=== PATIENT | male | born 1955 | race Caucasian/White ===

== ENCOUNTER 2017-02-13 11:23 | Observation (INO) | payer MEDICAID, OTHER ==
[~2017-02-13] VITALS: Ht 167.6 cm; Wt 81.0 kg
[2017-02-13 07:30] VITALS: BMI 28.8
[~2017-02-13 11:23] MED LIST: ASPI-664 PO; ATOR20TA38 PO; AUG875 PO; CIPR7.5D4 BOTH EARS; CLIN-73 PO; CLOP75TA27 PO; DILT120C77 PO; FENO145T19 PO; HYDR-3498 PO; INSU100V27 SC; LORA1TAB PO; METF500T4 PO; TERA2CAP3 PO
--- NOTE | 2017-02-13 11:55 | RADRPT ---
PROCEDURE: Chest x-ray CLINICAL INDICATION: Stroke TECHNIQUE: Chest single view COMPARISON: 12/16/2013 FINDINGS: The heart is normal in size. The pulmonary vessels are normal in caliber. The lungs are clear. Th e costophrenic angles are sharp. The visualized bony thorax is unremarkable. IMPRESSION: No acute cardiopulmonary disease. No interval change RPTAT: HH .Delta Harrison MD, Date Time Electronically viewed and signed by .Delta Harrison MD, MD on 02/13/2017 11:55 .W/
[2017-02-13] MEDS ORDERED: morphine 4 MG/ML VIAL IV STA (11:57)
[2017-02-13] MEDS ORDERED: ONDANSETRON 4 MG INJ IV STA (11:57)
--- NOTE | 2017-02-13 14:02 | ERD ---
ER Documentation Chief Complaint Chief Complaint sent by pmd for miles, dizziness. hx of cva HPI Patient is a 61-year-old male with previous stroke, hypertension, and diabetes who presents with weakness of his left arm. He has had this for 2 days. He has a history of previous stroke. He is complaining of headache in the back of his head and his left arm. He was seen by Dr. Jj today in the office who was concerned about stroke and sent him to the emergency department for stroke workup and admission. The patient had blood in his stool for the past 1 week as well. He supposedly had a colonoscopy 3 years ago. The patient's primary doctor is Dr. Jj. ROS All systems reviewed and are negative except as per history of present illness. Medications Home Meds Active Scripts Ciprofloxacin Hcl/Dexameth (Ciprodex Otic Suspension) 7.5 Ml Drops.susp, 4 DROP BOTH EARS BID, #1 EA Prov:YESSENIA HENRIQUEZ 02/27/15 Clindamycin Hcl* (Clindamycin Hcl*) 300 Mg Capsule, 300 MG PO TID for 10 Days, CAP Prov:YESSENIA HENRIQUEZ 02/27/15 Hydrocodone Bit-Acetaminophen* ([place]*) 5-325 Mg Tab, 1 TAB PO Q6 Y for PAIN, # 7 TAB Prov:YESSENIA HENRIQUEZ 02/27/15 Amoxicillin-Clavulanate K* (Augmentin*) 875 Mg Tab, 875 MG PO BID for ear infection for 14 Days, TAB 1 Refill Prov:ALIX MURGUIA MD 12/09/14 Reported Medications Lorazepam* (Lorazepam*) 1 Mg Tablet, 1 MG PO BID Y for ANXIETY, TAB 12/06/14 Insulin Lisp Protam/Lisp Human* (Humalog Mix (75/25)*) 100 Units/Ml Susp, 65 SC BID WITH MEALS, EA 12/06/14 Fenofibrate Nanocrystallized* (Fenofibrate*) 145 Mg Tablet, 145 MG PO DAILY, TAB 12/06/14 Clopidogrel Bisulfate (Clopidogrel) 75 Mg Tablet, 75 MG PO DAILY, TAB 12/06/14 Aspirin (Low Dose Aspirin) 81 Mg Tablet., 81 MG PO DAILY 12/06/14 Metformin Hcl* (Metformin Hcl*) 500 Mg Tablet, 500 MG PO TID, TAB 12/06/14 Terazosin Hcl* (Terazosin Hcl*) 2 Mg Capsule, 2 MG PO DAILY, CAP 12/06/14 Diltiazem Hcl* (Cardizem CD*) 120 Mg Cap.sr.24h, 120 MG PO DAILY, CAP 12/06/14 Atorvastatin Calcium* (Atorvastatin Calcium*) 20 Mg Tablet, 20 MG PO HS, TAB 12/06/14 Allergies Allergies: Coded Allergies: No Known Drug Allergy (Verified Allergy, Unknown, 12/06/14) PMhx/Soc History of Surgery: No Anesthesia Reaction: No Hx Neurological Disorder: No Hx Respiratory Disorders: No Hx Cardiac Disorders: No Hx Psychiatric Problems: No Hx Miscellaneous Medical Probl: No Hx Alcohol Use: No Hx Substance Use: No Hx Tobacco Use: No Smoking Status: Never smoker FmHx Family History: diabetes Physical Exam Vitals Vital Signs Date Time Temp Pulse Resp B/P Pulse Ox O2 Delivery O2 Flow Rate FiO2 02/13/17 12:00 98.3 60 20 125/70 99 Room Air 02/13/17 11:50 Nasal Cannula 02/13/17 11:28 98.7 78 20 139/71 99 Physical Exam Const: Moderate distress Head: Atraumatic Eyes: Normal Conjunctiva ENT: Normal External Ears, Nose and Mouth. Neck: Full range of motion..~ No meningismus. Resp: Clear to auscultation bilaterally Cardio: Regular rate and rhythm, no murmurs Abd: Soft, non tender, non distended. Normal bowel sounds Skin: No petechiae or rashes Back: No midline or flank tenderness Ext: No cyanosis, or edema Neur: Awake and alert on the left arm weakness compared to the right cranial nerves are intact Psych: Normal Mood and Affect Result Diagram: 02/13/17 1145 02/13/17 1145 Results 24 hrs Laboratory Tests Test 02/13/17 11:45 02/13/17 12:11 02/13/17 12:20 White Blood Count 7.910^3/ul Red Blood Count 5.0310^6/ul Hemoglobin 14.7g/dl Hematocrit 42.7% Mean Corpuscular Volume 84.9fl Mean Corpuscular Hemoglobin 29.2pg Mean Corpuscular Hemoglobin Concent 34.4g/dl Red Cell Distribution Width 13.2% Platelet Count 04163^3/UL Mean Platelet Volume 9.7fl Neutrophils % 66.4% Lymphocytes % 24.9% Monocytes % 6.1% Eosinophils % 1.3% Basophils % 0.8% Nucleated Red Blood Cells % 0.0/100WBC Neutrophils # 5.210^3/ul Lymphocytes # 2.010^3/ul Monocytes # 0.510^3/ul Eosinophils # 0.110^3/ul Basophils # 0.110^3/ul Nucleated Red Blood Cells # 0.010^3/ul Prothrombin Time 13.6Sec Prothrombin Time Ratio 1.1 INR International Normalized Ratio 1.04 Activated Partial Thromboplast Time 28.5Sec Sodium Level 140mmol/L Potassium Level 4.4mmol/L Chloride Level 104mmol/L Carbon Dioxide Level 24mmol/L Anion Gap 16 Blood Urea Nitrogen 17mg/dl Creatinine 0.65mg/dl Glucose Level 220mg/dl Hemoglobin A1c 9.6% Calcium Level 9.4mg/dl Troponin I < 0.012ng/ml Bedside Glucose 214mg/dL Urine Color YELLOW Urine Clarity CLEAR Urine pH 5.0 Urine Specific [place] 1.024 Urine Ketones NEGATIVEmg/dL Urine Nitrite NEGATIVEmg/dL Urine Bilirubin NEGATIVEmg/dL Urine Urobilinogen 1+mg/dL Urine Leukocyte Esterase NEGATIVELeu/ul Urine Hemoglobin NEGATIVEmg/dL Urine Glucose 3+mg/dL Urine Total Protein NEGATIVEmg/dl Current Medications Medications (Trade) Dose Ordered Sig/Rodolfo Route PRN Reason Start Time Stop Time Status Last Admin Dose Admin Morphine Sulfate (morphine) 4 mg ONCE STAT IV 02/13/17 11:57 02/13/17 11:58 DC 02/13/17 12:27 Ondansetron HCl (Zofran Inj) 4 mg ONCE STAT IV 02/13/17 11:57 02/13/17 11:58 DC 02/13/17 12:27 Procedures/MDM CT brain pending at this time. Chest x-ray negative per radiology. EKG read by me: Rate/Rhythm: Regular rate and rhythm at a normal rate Intervals: Normal Impression: No evidence of ischemia or arrhythmia Smoking Cessation Therapy: Pt. was lectured for greater than 3 minutes on the health risks of continued smoking and the benefits of cessation. Patient is a 61-year-old male with multiple risk factors who presents with a stroke. The patient has a CT scan which is pending at this time. Once his CT scan is complete he will need aspirin if there is no bleed. The patient will then be admitted to the care of Dr. Beltre from [facility] as the patient has [facility] insurance. Please note the patient has [facility] [employer] insurance but is adamantly refusing transfer to [facility]. The [facility] family preservation caseworker [facility] I doubt intracranial hemorrhage or mass. I doubt acute coronary syndrome at this time. Patient is outside the window for TPA as this started 2 days ago. Departure Diagnosis: Primary Impression: Stroke CVA mechanism: unspecified Qualified Code: I63.9 - Cerebrovascular accident (CVA), unspecified mechanism Additional Impression: Headache Headache type: unspecified Headache chronicity pattern: acute headache Intractability: not intractable Qualified Code: R51 - Acute nonintractable headache, unspecified headache type Condition: MANOJ Krause MD Feb 13, 2017 14:02
--- NOTE | 2017-02-13 14:02 | ERD ---
ER Documentation Chief Complaint Chief Complaint sent by pmd for miles, dizziness. hx of cva HPI Patient is a 61-year-old male with previous stroke, hypertension, and diabetes who presents with weakness of his left arm. He has had this for 2 days. He has a history of previous stroke. He is complaining of headache in the back of his head and his left arm. He was seen by Dr. Jj today in the office who was concerned about stroke and sent him to the emergency department for stroke workup and admission. The patient had blood in his stool for the past 1 week as well. He supposedly had a colonoscopy 3 years ago. The patient's primary doctor is Dr. Jj. ROS All systems reviewed and are negative except as per history of present illness. Medications Home Meds Active Scripts Ciprofloxacin Hcl/Dexameth (Ciprodex Otic Suspension) 7.5 Ml Drops.susp, 4 DROP BOTH EARS BID, #1 EA Prov:YESSENIA HENRIQUEZ 02/27/15 Clindamycin Hcl* (Clindamycin Hcl*) 300 Mg Capsule, 300 MG PO TID for 10 Days, CAP Prov:YESSENIA HENRIQUEZ 02/27/15 Hydrocodone Bit-Acetaminophen* ([place]*) 5-325 Mg Tab, 1 TAB PO Q6 Y for PAIN, # 7 TAB Prov:YESSENIA HENRIQUEZ 02/27/15 Amoxicillin-Clavulanate K* (Augmentin*) 875 Mg Tab, 875 MG PO BID for ear infection for 14 Days, TAB 1 Refill Prov:ALIX MURGUIA MD 12/09/14 Reported Medications Lorazepam* (Lorazepam*) 1 Mg Tablet, 1 MG PO BID Y for ANXIETY, TAB 12/06/14 Insulin Lisp Protam/Lisp Human* (Humalog Mix (75/25)*) 100 Units/Ml Susp, 65 SC BID WITH MEALS, EA 12/06/14 Fenofibrate Nanocrystallized* (Fenofibrate*) 145 Mg Tablet, 145 MG PO DAILY, TAB 12/06/14 Clopidogrel Bisulfate (Clopidogrel) 75 Mg Tablet, 75 MG PO DAILY, TAB 12/06/14 Aspirin (Low Dose Aspirin) 81 Mg Tablet., 81 MG PO DAILY 12/06/14 Metformin Hcl* (Metformin Hcl*) 500 Mg Tablet, 500 MG PO TID, TAB 12/06/14 Terazosin Hcl* (Terazosin Hcl*) 2 Mg Capsule, 2 MG PO DAILY, CAP 12/06/14 Diltiazem Hcl* (Cardizem CD*) 120 Mg Cap.sr.24h, 120 MG PO DAILY, CAP 12/06/14 Atorvastatin Calcium* (Atorvastatin Calcium*) 20 Mg Tablet, 20 MG PO HS, TAB 12/06/14 Allergies Allergies: Coded Allergies: No Known Drug Allergy (Verified Allergy, Unknown, 12/06/14) PMhx/Soc History of Surgery: No Anesthesia Reaction: No Hx Neurological Disorder: No Hx Respiratory Disorders: No Hx Cardiac Disorders: No Hx Psychiatric Problems: No Hx Miscellaneous Medical Probl: No Hx Alcohol Use: No Hx Substance Use: No Hx Tobacco Use: No Smoking Status: Never smoker FmHx Family History: diabetes Physical Exam Vitals Vital Signs Date Time Temp Pulse Resp B/P Pulse Ox O2 Delivery O2 Flow Rate FiO2 02/13/17 12:00 98.3 60 20 125/70 99 Room Air 02/13/17 11:50 Nasal Cannula 02/13/17 11:28 98.7 78 20 139/71 99 Physical Exam Const: Moderate distress Head: Atraumatic Eyes: Normal Conjunctiva ENT: Normal External Ears, Nose and Mouth. Neck: Full range of motion..~ No meningismus. Resp: Clear to auscultation bilaterally Cardio: Regular rate and rhythm, no murmurs Abd: Soft, non tender, non distended. Normal bowel sounds Skin: No petechiae or rashes Back: No midline or flank tenderness Ext: No cyanosis, or edema Neur: Awake and alert on the left arm weakness compared to the right cranial nerves are intact Psych: Normal Mood and Affect Result Diagram: 02/13/17 1145 02/13/17 1145 Results 24 hrs Laboratory Tests Test 02/13/17 11:45 02/13/17 12:11 02/13/17 12:20 White Blood Count 7.910^3/ul Red Blood Count 5.0310^6/ul Hemoglobin 14.7g/dl Hematocrit 42.7% Mean Corpuscular Volume 84.9fl Mean Corpuscular Hemoglobin 29.2pg Mean Corpuscular Hemoglobin Concent 34.4g/dl Red Cell Distribution Width 13.2% Platelet Count 12641^3/UL Mean Platelet Volume 9.7fl Neutrophils % 66.4% Lymphocytes % 24.9% Monocytes % 6.1% Eosinophils % 1.3% Basophils % 0.8% Nucleated Red Blood Cells % 0.0/100WBC Neutrophils # 5.210^3/ul Lymphocytes # 2.010^3/ul Monocytes # 0.510^3/ul Eosinophils # 0.110^3/ul Basophils # 0.110^3/ul Nucleated Red Blood Cells # 0.010^3/ul Prothrombin Time 13.6Sec Prothrombin Time Ratio 1.1 INR International Normalized Ratio 1.04 Activated Partial Thromboplast Time 28.5Sec Sodium Level 140mmol/L Potassium Level 4.4mmol/L Chloride Level 104mmol/L Carbon Dioxide Level 24mmol/L Anion Gap 16 Blood Urea Nitrogen 17mg/dl Creatinine 0.65mg/dl Glucose Level 220mg/dl Hemoglobin A1c 9.6% Calcium Level 9.4mg/dl Troponin I < 0.012ng/ml Bedside Glucose 214mg/dL Urine Color YELLOW Urine Clarity CLEAR Urine pH 5.0 Urine Specific [place] 1.024 Urine Ketones NEGATIVEmg/dL Urine Nitrite NEGATIVEmg/dL Urine Bilirubin NEGATIVEmg/dL Urine Urobilinogen 1+mg/dL Urine Leukocyte Esterase NEGATIVELeu/ul Urine Hemoglobin NEGATIVEmg/dL Urine Glucose 3+mg/dL Urine Total Protein NEGATIVEmg/dl Current Medications Medications (Trade) Dose Ordered Sig/Rodolfo Route PRN Reason Start Time Stop Time Status Last Admin Dose Admin Morphine Sulfate (morphine) 4 mg ONCE STAT IV 02/13/17 11:57 02/13/17 11:58 DC 02/13/17 12:27 Ondansetron HCl (Zofran Inj) 4 mg ONCE STAT IV 02/13/17 11:57 02/13/17 11:58 DC 02/13/17 12:27 Procedures/MDM CT brain pending at this time. Chest x-ray negative per radiology. EKG read by me: Rate/Rhythm: Regular rate and rhythm at a normal rate Intervals: Normal Impression: No evidence of ischemia or arrhythmia Smoking Cessation Therapy: Pt. was lectured for greater than 3 minutes on the health risks of continued smoking and the benefits of cessation. Patient is a 61-year-old male with multiple risk factors who presents with a stroke. The patient has a CT scan which is pending at this time. Once his CT scan is complete he will need aspirin if there is no bleed. The patient will then be admitted to the care of Dr. Beltre from [facility] as the patient has [facility] insurance. Please note the patient has [facility] [employer] insurance but is adamantly refusing transfer to [facility]. The [facility] pillowcase turner [facility] I doubt intracranial hemorrhage or mass. I doubt acute coronary syndrome at this time. Patient is outside the window for TPA as this started 2 days ago. Departure Diagnosis: Primary Impression: Stroke CVA mechanism: unspecified Qualified Code: I63.9 - Cerebrovascular accident (CVA), unspecified mechanism Additional Impression: Headache Headache type: unspecified Headache chronicity pattern: acute headache Intractability: not intractable Qualified Code: R51 - Acute nonintractable headache, unspecified headache type Condition: MANOJ Krause MD Feb 13, 2017 14:02
--- NOTE | 2017-02-13 14:02 | ERD ---
ER Documentation Chief Complaint Chief Complaint sent by pmd for miles, dizziness. hx of cva HPI Patient is a 61-year-old male with previous stroke, hypertension, and diabetes who presents with weakness of his left arm. He has had this for 2 days. He has a history of previous stroke. He is complaining of headache in the back of his head and his left arm. He was seen by Dr. Jj today in the office who was concerned about stroke and sent him to the emergency department for stroke workup and admission. The patient had blood in his stool for the past 1 week as well. He supposedly had a colonoscopy 3 years ago. The patient's primary doctor is Dr. Jj. ROS All systems reviewed and are negative except as per history of present illness. Medications Home Meds Active Scripts Ciprofloxacin Hcl/Dexameth (Ciprodex Otic Suspension) 7.5 Ml Drops.susp, 4 DROP BOTH EARS BID, #1 EA Prov:YESSENIA HENRIQUEZ 02/27/15 Clindamycin Hcl* (Clindamycin Hcl*) 300 Mg Capsule, 300 MG PO TID for 10 Days, CAP Prov:YESSENIA HENRIQUEZ 02/27/15 Hydrocodone Bit-Acetaminophen* ([place]*) 5-325 Mg Tab, 1 TAB PO Q6 Y for PAIN, # 7 TAB Prov:YESSENIA HENRIQUEZ 02/27/15 Amoxicillin-Clavulanate K* (Augmentin*) 875 Mg Tab, 875 MG PO BID for ear infection for 14 Days, TAB 1 Refill Prov:ALIX MURGUIA MD 12/09/14 Reported Medications Lorazepam* (Lorazepam*) 1 Mg Tablet, 1 MG PO BID Y for ANXIETY, TAB 12/06/14 Insulin Lisp Protam/Lisp Human* (Humalog Mix (75/25)*) 100 Units/Ml Susp, 65 SC BID WITH MEALS, EA 12/06/14 Fenofibrate Nanocrystallized* (Fenofibrate*) 145 Mg Tablet, 145 MG PO DAILY, TAB 12/06/14 Clopidogrel Bisulfate (Clopidogrel) 75 Mg Tablet, 75 MG PO DAILY, TAB 12/06/14 Aspirin (Low Dose Aspirin) 81 Mg Tablet., 81 MG PO DAILY 12/06/14 Metformin Hcl* (Metformin Hcl*) 500 Mg Tablet, 500 MG PO TID, TAB 12/06/14 Terazosin Hcl* (Terazosin Hcl*) 2 Mg Capsule, 2 MG PO DAILY, CAP 12/06/14 Diltiazem Hcl* (Cardizem CD*) 120 Mg Cap.sr.24h, 120 MG PO DAILY, CAP 12/06/14 Atorvastatin Calcium* (Atorvastatin Calcium*) 20 Mg Tablet, 20 MG PO HS, TAB 12/06/14 Allergies Allergies: Coded Allergies: No Known Drug Allergy (Verified Allergy, Unknown, 12/06/14) PMhx/Soc History of Surgery: No Anesthesia Reaction: No Hx Neurological Disorder: No Hx Respiratory Disorders: No Hx Cardiac Disorders: No Hx Psychiatric Problems: No Hx Miscellaneous Medical Probl: No Hx Alcohol Use: No Hx Substance Use: No Hx Tobacco Use: No Smoking Status: Never smoker FmHx Family History: diabetes Physical Exam Vitals Vital Signs Date Time Temp Pulse Resp B/P Pulse Ox O2 Delivery O2 Flow Rate FiO2 02/13/17 12:00 98.3 60 20 125/70 99 Room Air 02/13/17 11:50 Nasal Cannula 02/13/17 11:28 98.7 78 20 139/71 99 Physical Exam Const: Moderate distress Head: Atraumatic Eyes: Normal Conjunctiva ENT: Normal External Ears, Nose and Mouth. Neck: Full range of motion..~ No meningismus. Resp: Clear to auscultation bilaterally Cardio: Regular rate and rhythm, no murmurs Abd: Soft, non tender, non distended. Normal bowel sounds Skin: No petechiae or rashes Back: No midline or flank tenderness Ext: No cyanosis, or edema Neur: Awake and alert on the left arm weakness compared to the right cranial nerves are intact Psych: Normal Mood and Affect Result Diagram: 02/13/17 1145 02/13/17 1145 Results 24 hrs Laboratory Tests Test 02/13/17 11:45 02/13/17 12:11 02/13/17 12:20 White Blood Count 7.910^3/ul Red Blood Count 5.0310^6/ul Hemoglobin 14.7g/dl Hematocrit 42.7% Mean Corpuscular Volume 84.9fl Mean Corpuscular Hemoglobin 29.2pg Mean Corpuscular Hemoglobin Concent 34.4g/dl Red Cell Distribution Width 13.2% Platelet Count 20552^3/UL Mean Platelet Volume 9.7fl Neutrophils % 66.4% Lymphocytes % 24.9% Monocytes % 6.1% Eosinophils % 1.3% Basophils % 0.8% Nucleated Red Blood Cells % 0.0/100WBC Neutrophils # 5.210^3/ul Lymphocytes # 2.010^3/ul Monocytes # 0.510^3/ul Eosinophils # 0.110^3/ul Basophils # 0.110^3/ul Nucleated Red Blood Cells # 0.010^3/ul Prothrombin Time 13.6Sec Prothrombin Time Ratio 1.1 INR International Normalized Ratio 1.04 Activated Partial Thromboplast Time 28.5Sec Sodium Level 140mmol/L Potassium Level 4.4mmol/L Chloride Level 104mmol/L Carbon Dioxide Level 24mmol/L Anion Gap 16 Blood Urea Nitrogen 17mg/dl Creatinine 0.65mg/dl Glucose Level 220mg/dl Hemoglobin A1c 9.6% Calcium Level 9.4mg/dl Troponin I < 0.012ng/ml Bedside Glucose 214mg/dL Urine Color YELLOW Urine Clarity CLEAR Urine pH 5.0 Urine Specific [place] 1.024 Urine Ketones NEGATIVEmg/dL Urine Nitrite NEGATIVEmg/dL Urine Bilirubin NEGATIVEmg/dL Urine Urobilinogen 1+mg/dL Urine Leukocyte Esterase NEGATIVELeu/ul Urine Hemoglobin NEGATIVEmg/dL Urine Glucose 3+mg/dL Urine Total Protein NEGATIVEmg/dl Current Medications Medications (Trade) Dose Ordered Sig/Rodolfo Route PRN Reason Start Time Stop Time Status Last Admin Dose Admin Morphine Sulfate (morphine) 4 mg ONCE STAT IV 02/13/17 11:57 02/13/17 11:58 DC 02/13/17 12:27 Ondansetron HCl (Zofran Inj) 4 mg ONCE STAT IV 02/13/17 11:57 02/13/17 11:58 DC 02/13/17 12:27 Procedures/MDM CT brain pending at this time. Chest x-ray negative per radiology. EKG read by me: Rate/Rhythm: Regular rate and rhythm at a normal rate Intervals: Normal Impression: No evidence of ischemia or arrhythmia Smoking Cessation Therapy: Pt. was lectured for greater than 3 minutes on the health risks of continued smoking and the benefits of cessation. Patient is a 61-year-old male with multiple risk factors who presents with a stroke. The patient has a CT scan which is pending at this time. Once his CT scan is complete he will need aspirin if there is no bleed. The patient will then be admitted to the care of Dr. Beltre from [facility] as the patient has [facility] insurance. Please note the patient has [facility] [employer] insurance but is adamantly refusing transfer to [facility]. The [facility] rn case manager [facility]. I doubt intracranial hemorrhage or mass. I doubt acute coronary syndrome at this time. Patient is outside the window for TPA as this started 2 days ago. Departure Diagnosis: Primary Impression: Stroke CVA mechanism: unspecified Qualified Code: I63.9 - Cerebrovascular accident (CVA), unspecified mechanism Additional Impression: Headache Headache type: unspecified Headache chronicity pattern: acute headache Intractability: not intractable Qualified Code: R51 - Acute nonintractable headache, unspecified headache type Condition: MANOJ Krause MD Feb 13, 2017 14:02
--- NOTE | 2017-02-13 14:25 | RADRPT ---
PROCEDURE: CT brain without contrast CLINICAL INDICATION: Possible stroke, history of prior CVA, left-sided weakness TECHNIQUE: CT of the brain without contrast performed on a multidetector CT scanner, with multiplan ar reformats. One or more of the following dose reduction techniques were used: Automated exposure control, adjustment in mA and / or kV according to patient size, use of iterative reconstructive dejuan hnique. CTDIvol = 43 mGy; DLP = 720 mGy-cm. COMPARISON: None available FINDINGS: No acute intracranial hemorrhage is identified. No extra-axial fluid collection is seen. There is no mass effect. No midline shift is identified. The ventricles and sulci are mildly enlarged compatible with volume loss. There are mild areas of hypodensity in the periventricular - deep white matter which are nonspecific but suggestive of chronic small vessel ischemic changes. [place]-white differentiation appears preser nelly. Atherosclerotic calcifications of the intracranial internal carotid arteries are noted. Calvarium and skull base are intact. Mastoid air cells and imaged paranasal sinuses grossly clear. IMPRESSION: 1. No acute intracranial pathology identified. If there is persistent clinical concern, consider fu rther evaluation with MRI. 2. Mild volume loss, with mild chronic small vessel ischemic changes. RPTAT: VV .Archie Kim MD, MD Date Time Electronically viewed and signed by .Archie Kim MD, MD on 02/13/2017 14:25 .O/
[2017-02-13] MEDS ORDERED: ACETAMINOPHEN 325 MG TAB PO PRN ×2 (14:30→15:00)
[2017-02-13] MEDS ORDERED: ONDANSETRON 4 MG INJ IV PRN ×2 (14:30→15:00)
[2017-02-13] MEDS ORDERED: ASPIRIN 325 MG TAB PO ONE (14:30)
[2017-02-13] MEDS ORDERED: DOCUSATE SODIUM 100 MG CAP PO PRN (15:00)
[2017-02-13] MEDS ORDERED: HYDROCODONE/APAP (5/325) TAB PO PRN ×2 (15:00)
[2017-02-13] MEDS ORDERED: NITROGLYCERIN (SL) 0.4 MG TAB SL PRN (15:00)
[2017-02-13] MEDS ORDERED: BISACODYL 10 MG SUPP PR PRN (15:00)
[2017-02-13] MEDS ORDERED: MAGNESIUM HYDROXIDE 30ML CUP PO PRN (15:00)
[2017-02-13] MEDS ORDERED: morphine 2 MG INJ IV PRN (15:00)
[2017-02-13] MEDS ORDERED: NACL 0.9% 3 ML SYG IV SCH (15:00)
[2017-02-13] MEDS ORDERED: ZOLPIDEM 5 MG TAB PO PRN (15:00)
[2017-02-13] MEDS ORDERED: IODIXANOL LOCM 100 ML BTL ONE (15:21)
[2017-02-13] MEDS ORDERED: SOD CHLORIDE 0.9% 100 ML ONE (15:21)
[2017-02-13] MEDS ORDERED: AMLO-147 PO (15:30)
[2017-02-13] MEDS ORDERED: DEXTROSE 50% 50 ML SYRINGE IV PRN ×2 (15:30)
[2017-02-13] MEDS ORDERED: GLUCAGON 1 MG INJ IM PRN (15:30)
[2017-02-13] MEDS ORDERED: GLUCOSE GEL 15 GRAM TUBE BUCCAL PRN (15:30)
[2017-02-13] MEDS ORDERED: GLUCOSE GEL 15 GRAM TUBE PO PRN ×2 (15:30)
[2017-02-13] MEDS ORDERED: METO-335 PO (15:31)
[2017-02-13] MEDS ORDERED: INSU100I12 SQ (15:33)
[2017-02-13] MEDS ORDERED: INSU100I31 SQ (15:34)
--- NOTE | 2017-02-13 15:57 | RADRPT ---
PROCEDURE: CTA head and neck CLINICAL INDICATION: Neurological deficit. CVA. Left-sided weakness. TECHNIQUE: The study was performed utilizing multidetector CT scanner. Direct thin section axial s ections were obtained through the head and neck after the uneventful administration of 90 cc of Visi paque 320 nonionic intravenous contrast material. Coronal and sagittal as well as maximal intensity projection reformations were obtained. 3-D images were made. The images were reviewed on a PACS [place]. One or more the following does reduction techniques were utilized: Automated exposure con trol, adjustment of the mA/ or kV according to patient's size, or use of iterative reconstruction te chnique. The total CTDIvol is 24.75, 16.76 mGy and the DLP is 721.75 mGy-cm. COMPARISON: Brain CT of the same day. FINDINGS: CTA NECK: There is eccentric atherosclerotic calcification of aortic arch. The left vertebral artery directly originates from the aortic arch and demonstrate mild to moderate narrowing of its origin. The origins of the remainder of great vessels off the aortic arch are patent without significant vel nosis. Calcified and noncalcified atherosclerotic plaques of bilateral carotid bulbs are noted with associa helder estimated 25% stenosis of proximal right internal carotid artery and 20% stenosis of proximal le ft internal carotid artery by NASCET criteria. There is mild to moderate narrowing of the proximal b ilateral external carotid arteries. Otherwise the remainder of common carotid and internal carotid a rteries are patent without significant stenosis. Direct measurements of vessel diameters was made in reference to measurements of the distal internal carotid artery diameter. The left vertebral artery is dominant. The remainder of the vertebral arteries are patent without hi gh-grade stenosis. CTA BRAIN: There are atherosclerosis calcifications of cavernous and supraclinoid segments of the internal song tid arteries with associated mild to moderate stenosis. The petrous segments of internal carotid arteries are patent without significant stenosis. The proxi mal middle cerebral arteries and anterior cerebral arteries are patent without significant stenosis. The intracranial vertebral arteries, basilar artery, and posterior cerebral arteries are also unre markable without significant stenosis. No aneurysm or vascular malformation is identified. IMPRESSION: 1. Estimated 25% stenosis of proximal right internal carotid artery and 20% stenosis of proximal le ft internal carotid artery by NASCET criteria. 2. Mild to moderate narrowing of the proximal bilateral external carotid arteries. 3. Mild to moderate narrowing of left vertebral artery origin. 4. Mild to moderate narrowing of cavernous and supraclinoid segments of the internal carotid arteri es. 5. Otherwise no significant stenosis in the remainder of major intracranial and neck arteries. RPTAT: JJ .Viviana Emerson MD, MD Date Time Electronically viewed and signed by .Viviana Emerson MD, on 02/13/2017 16:03 .N/
[2017-02-13] MEDS ORDERED: LORAZEPAM 1 MG TAB PO PRN (16:00)
--- NOTE | 2017-02-13 16:00 | HP ---
Date/Time of Note Date/Time of Note DATE: 02/13/17 TIME: 15:27 Assessment/Plan VTE Prophylaxis VTE Prophylaxis Intervention: LMWH Lines/Catheters IV [facility] Saline Lock Assessment/Plan Assessment/Plan 61-year-old male with: 1. Possible new acute CVA with worsening the left hemiparesis, vision was also known old CVA with left hemiparesis. CT head with no acute findings, CTA head and neck along with MRI of the brain are pending. We will check fasting lipid panel, increase Lipitor to 40 mg p.o. nightly, continue blood pressure medications and blood sugar control. PT/OT evaluation. Patient has no dysphagia or dysarthria. Continue aspirin and Plavix for now, no arrhythmias seen. 2D echocardiogram pending 2. Diabetes mellitus, A1c 9.6, could be better controlled, continue current regimen, sliding scale insulin added. Monitor blood sugars. ADA diet 3. Hypertension: Continue current medications, monitor heart rate closely. 4. Hyperlipidemia: Continue fenofibrate, increase Lipitor to 40 mg nightly. Check fasting lipid panel in a.m. 5. Coronary artery disease, continue antiplatelet therapy, continue current medication, 2D echocardiogram pending. 6. Heavy tobacco use: Still smoking 1 pack a day, patient agreeable to quit, nicotine patch ordered. Prophylaxis: Lovenox for DVT prophylaxis, Pepcid for GI prophylaxis Disposition: Admit to telemetry observation. Of note patient is capped to [facility] but has refused to transfer, therefore he has been admitted at [facility] for acute CVA workup. HPI/ROS Admit Date/Time Admit Date/Time Hx of Present Illness Chief complaint: Worsened left hemiparesis 2 days and headache History of presenting illness: This is a 61-year-old male with multiple medical problems including diabetes mellitus, hypertension, hyperlipidemia, old CVA, coronary artery disease, heavy tobacco use who presented emergency department with reported increasing left hemiparesis. Patient did have acute CVA with left hemiparesis 3 years ago, apparently he was doing well with mild left upper extremity hemiparesis mostly until 2 days ago when he had worsening of his left hemiparesis increasing headaches from the occipital area up to his head seems to be predominantly on the left side also, the reports that he has been dragging his left leg more and having to use the walker at night. Patient reports some dizziness along with the episodes of headache, diplopia with episode of headache. No fevers, chills, vomiting. He did have episodes of nausea, blood sugars are within normal and blood pressure stable according to the at the bedside. Patient compliant with medications however still actively smoking 1 pack a day. Patient denies any chest pain, shortness of breath. CT head today showing no acute changes, CTA head and neck and MRI brain are pending. We will continue his home medications and further adjustments to be made pending CAT scan and MRI results. Patient is being admitted for possible acute CVA. ROS Constitutional: no complaints Eyes: visual change (Occasionally over the past 2 days, patient with diplopia) Respiratory: no complaints Cardiovascular: lightheadedness Gastrointestinal: no complaints Genitourinary: no complaints Musculoskeletal: no complaints Skin: no complaints Neurologic: focal-weakness (Worsened left hemiparesis more pronounced left lower extremity per patient) Endocrine: no complaints Lymphatic: no complaints Psychological: no complaints PMH/Family/Social Past Medical History Old CVA with mild left hemiparesis Coronary artery disease status post angioplasty Hypertension Hyperlipidemia Diabetes mellitus, insulin requiring Heavy tobacco use Past Surgical History Status post appendectomy as a child Family History Significant Family History: no pertinent family hx Social History Alcohol Use: occasionally Smoking Status: Current every day smoker (1 pack a day) Drug Use: none Exam/Review of Systems Vital Signs Vitals Vital Signs Date Time Temp Pulse Resp B/P Pulse Ox O2 Delivery O2 Flow Rate FiO2 02/13/17 14:00 98.3 59 20 114/72 98 Room Air Exam Constitutional: alert, oriented, well developed Head: atraumatic, normocephalic Eyes: EOMI, nl conjunctiva, nl lids Neck: non-tender, supple Respiratory: clear to auscultation, normal air movement Cardiovascular: nl pulses, regular rate and rhythm Gastrointestinal: non-tender, soft Musculoskeletal: nl extremities to inspection, other (No edema clubbing or cyanosis) Neurological: [employer]ING [employer] II-XII intact, focal weakness (Left hemiparesis more pronounced according to family, LLE>LUE), nl mental status, nl speech Labs Result Diagram: 02/13/17 1145 02/13/17 1145 Medications Medications Current Medications Ondansetron HCl (Zofran Inj) 4 mg Q6H PRN IV NAUSEA AND/OR VOMITING; Start at 15:00 Aspirin (Aspirin) 81 mg DAILY PO ; Start 02/14/17 at 09:00 Nitroglycerin (Nitroglycerin (Sl Tab) 0.4 Mg) 1 tab Q5M PRN SL CHEST PAIN; Start 02/13/17 at 15:00 Acetaminophen (Tylenol Tab) 650 mg Q6H PRN PO PAIN LEVEL 1-3 OR FEVER; Start 02/13/17 at 15:00 Acetaminophen/ Hydrocodone Bitart ([place] (5/325)) 1 tab Q6H PRN PO PAIN LEVEL 4 -6; Start 02/13/17 at 15:00 Acetaminophen/ Hydrocodone Bitart ([place] (5/325)) 2 tab Q6H PRN PO PAIN LEVEL 7 -10; Start 02/13/17 at 15:00 Morphine Sulfate (morphine) 2 mg Q4H PRN IV PAIN LEVEL 7-10; Start 02/13/17 at 15:00 Zolpidem Tartrate (Ambien) 5 mg QHS PRN PO INSOMNIA; Start 02/13/17 at 15:00 Docusate Sodium (Colace) 100 mg Q12H PRN PO CONSTIPATION; Start 02/13/17 at 15 :00 Magnesium Hydroxide (Milk Of Mag) 30 ml DAILY PRN PO CONSTIPATION; Start 02/13 at 15:00 Bisacodyl (Dulcolax Supp) 10 mg DAILY PRN [place] CONSTIPATION; Start 02/13/17 at 15:00 Famotidine (Pepcid) 20 mg Q12 PO ; Start 02/13/17 at 21:00 Enoxaparin Sodium (Lovenox) 40 mg DAILY SC ; Start 02/14/17 at 09:00 Miscellaneous Information (* Miscellaneous Pharmacy Order) Discontinue current oral sulfonylur... ONCE ONCE XX ; Start 02/13/17 at 15:30; Stop 02/13/17 at 15:31 Diagnostic Test (Pha) (Accu-Chek) 1 ea XX ; Start 02/14/17 at 02:00 Miscellaneous Information (* Miscellaneous Pharmacy Order) HYPOGLYCEMIA PROTOCOL w... ONCE ONCE XX ; Start 02/13/17 at 15:30; Stop 02/13/17 at 15:31 Miscellaneous Information (* Miscellaneous Pharmacy Order) Discontinue all previ... ONCE ONCE XX ; Start 02/13/17 at 15:30; Stop 02/13/17 at 15:31 Miscellaneous Information 1 ea NOTE XX ; Start 02/13/17 at 15:30 Glucose (Glutose) 15 gm Q15M PRN PO DECREASED GLUCOSE; Start 02/13/17 at 15:30 Glucose (Glutose) 22.5 gm Q15M PRN PO DECREASED GLUCOSE; Start 02/13/17 at 15: 30 Dextrose (D50w Syringe) 25 ml Q15M PRN IV DECREASED GLUCOSE; Start 02/13/17 at 15:30 Dextrose (D50w Syringe) 50 ml Q15M PRN IV DECREASED GLUCOSE; Start 02/13/17 at 15:30 Glucagon (Glucagen) 1 mg Q15M PRN IM DECREASED GLUCOSE; Start 02/13/17 at 15: 30 Glucose (Glutose) 15 gm Q15M PRN BUCCAL DECREASED GLUCOSE; Start 02/13/17 at 15:30 Procedures Procedures PROCEDURE: Chest x-ray CLINICAL INDICATION: Stroke TECHNIQUE: Chest single view COMPARISON: 12/16/2013 FINDINGS: The heart is normal in size. The pulmonary vessels are normal in caliber. The lungs are clear. The costophrenic angles are sharp. The visualized bony thorax is unremarkable. IMPRESSION: No acute cardiopulmonary disease. No interval change RPTAT: HH .Delta Harrison MD, Date Time Electronically viewed and signed by .Delta Harrison MD, on 02/13/2017 11:55 .W/ PROCEDURE: CT brain without contrast CLINICAL INDICATION: Possible stroke, history of prior CVA, left-sided weakness TECHNIQUE: CT of the brain without contrast performed on a multidetector CT scanner, with multiplanar reformats. One or more of the following dose reduction techniques were used: Automated exposure control, adjustment in mA and / or kV according to patient size, use of iterative reconstructive technique. CTDIvol = 43 mGy; DLP = 720 mGy-cm. COMPARISON: None available FINDINGS: No acute intracranial hemorrhage is identified. No extra-axial fluid collection is seen. There is no mass effect. No midline shift is identified. The ventricles and sulci are mildly enlarged compatible with volume loss. There are mild areas of hypodensity in the periventricular - deep white matter which are nonspecific but suggestive of chronic small vessel ischemic changes. [place]-white differentiation appears preserved. Atherosclerotic calcifications of the intracranial internal carotid arteries are noted. Calvarium and skull base are intact. Mastoid air cells and imaged paranasal sinuses grossly clear. IMPRESSION: 1. No acute intracranial pathology identified. If there is persistent clinical concern, consider further evaluation with MRI. 2. Mild volume loss, with mild chronic small vessel ischemic changes. EKG: Rate/Rhythm: Regular rate and rhythm at a normal rate Intervals: Normal Impression: No evidence of ischemia or arrhythmia LACY COLVIN Feb 13, 2017 15:39
--- NOTE | 2017-02-13 16:09 | RADRPT ---
PROCEDURE: CTA head and neck CLINICAL INDICATION: Neurological deficit. CVA. Left-sided weakness. TECHNIQUE: The study was performed utilizing multidetector CT scanner. Direct thin section axial sec tions were obtained through the head and neck after the uneventful administration of 90 cc of Visipa que 320 nonionic intravenous contrast material. Coronal and sagittal as well as maximal intensity pr ojection reformations were obtained. 3-D images were made. The [facility] One or more the following does reduction techniques were utilized: Automated exposure control, adjustment of the mA/ or kV according to patient's size, or use of iterative recon struction technique. The total CTDIvol is 24.75, 16.76 mGy and the DLP is 721.75 mGy-cm. COMPARISON: Brain CT of the same day. FINDINGS: CTA NECK: Mild eccentric atherosclerotic calcification of the aorta is noted. The left vertebral artery origin ates directly from the aortic arch and demonstrate mild to moderate narrowing of its origin. The origins of the remainder of great vessels off the aortic arch are patent without significant vel nosis. Calcified and noncalcified atherosclerotic plaques involving bilateral carotid bulbs with associated estimated 25% stenosis of the proximal right internal carotid artery and 20% stenosis of the proxim al left internal carotid artery by NASCET criteria. Mild to moderate narrowing of proximal bilateral external carotid arteries. Otherwise the remainder of the common carotid and internal carotid arteries are patent without significant stenosis. Direct measurements of vessel diameters was made in reference to measurements of the distal internal carot id artery diameter. The remainder of vertebral arteries are otherwise patent without high-grade sten osis. CTA BRAIN: There are atherosclerosis calcifications of cavernous and supraclinoid segments of the internal song tid arteries with associated mild to moderate stenosis. The petrous segments of internal carotid art eries are patent without significant stenosis. The proximal middle cerebral arteries and anterior ce rebral arteries are patent without significant stenosis. The intracranial vertebral arteries, basila r artery, and posterior cerebral arteries are also unremarkable without significant stenosis. No ane urysm or vascular malformation is identified. IMPRESSION: 1. Estimated 25% stenosis of the proximal right internal carotid artery and 20% stenosis of the proximal left internal carotid artery by NASCET criteria. 2. Mild to moderate narrowing of proximal bilateral external carotid arteries. 3. Mild to moderate narrowing of the origin of the left vertebral artery. 4. Mild to moderate narrowing of bilateral cavernous and supraclinoid segments of the internal carotid arteries. 5. Otherwise no significant stenosis in the remainder of major intracranial and neck arteries. RPTAT: JJ .Viviana Emerson MD, MD Date Time Electronically viewed and signed by .Viviana Emerson MD, MD on 02/13/2017 16:09 .N/
[2017-02-13 17:00] VITALS: TEMP 98.3
[2017-02-13] MEDS ORDERED: INSULIN ASPART [NOVOLOG] 3 ML PEN SC SCH (18:00)
--- NOTE | 2017-02-13 18:56 | RADRPT ---
PROCEDURE: MR Brain without intravenous contrast CLINICAL INDICATION: Acute cerebrovascular accident. Left-sided weakness. COMPARISON: CT 02/13/2017. MRI from 12/18/2013. TECHNIQUE: Multiplanar multi-sequence images of the brain were obtained. Images acquired on a 3.0 T esla magnet. FINDINGS: Parenchyma: No acute hemorrhage, infarction, or mass. Perivascular spaces within the basal ganglia. Increased T2 signal within the globus pallidi which that suppresses on FLAIR imaging, a finding sugg esting that it represents a perivascular space. Mild amount of periventricular and subcortical white matter FLAIR hyperintensity, a nonspecific finding often associated with chronic microangiopathy. Ventricles: Mild generalized volume with proportionate ex vacuo ventricular dilation. . Extra-axial spaces: No herniation or midline shift. Orbits: Bilateral lens replacements. Major intracranial flow voids: Preserved. Paranasal sinuses: Minimal ethmoid sinus mucosal thickening. Mastoids and middle ears: Clear. Bones: Normal. Extracranial soft tissues: Normal. Additional comment: None. IMPRESSION: 1. No acute hemorrhage or infarction. 2. Mild white matter changes, a nonspecific finding often associated with chronic microangiopathy. RPTAT: HH Physician Lee Date Time Electronically viewed and signed by Physician Lee on 02/13/2017 18:56 /
[2017-02-13 19:30] VITALS: Ht 167.6 cm; Wt 81.0 kg
[2017-02-13 20:21] VITALS: PULSE 55
[2017-02-13] MEDS: FAMOTIDINE 20 MG TAB PO SCH (20:28)
[2017-02-13 20:37] VITALS: BP 126/60; RESP 18
[2017-02-13] MEDS ORDERED: ATORVASTATIN 20 MG TAB PO SCH (21:00)
[2017-02-13] MEDS ORDERED: ATORVASTATIN 40 MG TAB PO SCH (21:00)
[2017-02-13] MEDS ORDERED: INSULIN GLARGINE [LANtus] 3 ML PEN SC SCH ×2 (21:00)
[2017-02-13] MEDS: INSULIN ASPART [NOVOLOG] 3 ML PEN SC SCH ×2 (21:00→22:40)
[2017-02-13 23:56] VITALS: BP 104/59; RESP 18
[2017-02-14] VITALS (7 sets, daily range): BP systolic 108–138; BP diastolic 60–64; PULSE 59–75; RESP 18
[2017-02-14] MEDS ORDERED: ACCU-CHEK XX SCH (02:00)
[2017-02-14] MEDS: INSULIN ASPART [NOVOLOG] 3 ML PEN SC SCH ×5 (08:00→12:18)
[2017-02-14] MEDS: FAMOTIDINE 20 MG TAB PO SCH (08:55)
[2017-02-14] MEDS: NICOTINE (21 MG/24 HR) PATCH TRANSDERM SCH ×2 (08:56→09:02)
[2017-02-14] MEDS ORDERED: ASPIRIN 81 MG TAB PO SCH (09:00)
[2017-02-14] MEDS ORDERED: ENOXAPARIN 40 MG/0.4 ML SYG SC SCH (09:00)
[2017-02-14] MEDS ORDERED: DILTIAZEM (CD) 120 MG CAP PO SCH (09:00)
[2017-02-14] MEDS ORDERED: METOPROLOL (XL) 25 MG TAB PO SCH (09:00)
[2017-02-14] MEDS ORDERED: AMLODIPINE 10 MG TAB PO SCH (09:00)
[2017-02-14] MEDS ORDERED: FENOFIBRATE 145 MG TAB PO SCH (09:00)
[2017-02-14] MEDS ORDERED: CLOPIDOGREL 75 MG TAB PO SCH (09:00)
--- NOTE | 2017-02-14 09:44 | PN ---
Date/Time of Note Date/Time of Note DATE: 02/14/17 TIME: 09:42 Assessment/Plan VTE Prophylaxis VTE Prophylaxis Intervention: LMWH Lines/Catheters IV Catheter Type (from Nrsg): Saline Lock Assessment/Plan Assessment/Plan 1. no evidence of stroke, no surgical vascular disease (b) tobacco cessation counselling povided 2. L should muscular pain, cont tylenol, use heat packs, consider accupuncture/ chiropractor 3. d/c home Subjective 24 Hr Interval Summary Free Text/Dictation no complaints, L arm weakness improved does mention some ongoing L shoulder musculatr pain which has been intermittant Exam/Review of Systems Vital Signs Vitals Vital Signs Date Time Temp Pulse Resp B/P Pulse Ox O2 Delivery O2 Flow Rate FiO2 02/14/17 08:20 60 02/14/17 08:01 98.0 18 138/64 96 02/13/17 18:45 Room Air Intake and Output 02/13/17 02/13/17 02/14/17 15:00 23:00 07:00 Intake Total 1200 ml Balance 1200 ml Exam Constitutional: alert Respiratory: clear to auscultation Cardiovascular: regular rate and rhythm Gastrointestinal: non-tender, soft Results Result Diagram: 02/14/17 0645 02/14/17 0646 Results 24 hrs Laboratory Tests Test 02/13/17 11:45 02/13/17 12:11 02/13/17 12:20 02/13/17 20:12 White Blood Count 7.9 Red Blood Count 5.03 Hemoglobin 14.7 Hematocrit 42.7 Mean Corpuscular Volume 84.9 Mean Corpuscular Hemoglobin 29.2 Mean Corpuscular Hemoglobin Concent 34.4 Red Cell Distribution Width 13.2 Platelet Count 154 Mean Platelet Volume 9.7 # Neutrophils % 66.4 Lymphocytes % 24.9 Monocytes % 6.1 Eosinophils % 1.3 Basophils % 0.8 Nucleated Red Blood Cells % 0.0 Neutrophils # 5.2 Lymphocytes # 2.0 Monocytes # 0.5 Eosinophils # 0.1 Basophils # 0.1 Nucleated Red Blood Cells # 0.0 Prothrombin Time 13.6 Prothrombin Time Ratio 1.1 INR International Normalized Ratio 1.04 Activated Partial Thromboplast Time 28.5 Sodium Level 140 Potassium Level 4.4 Chloride Level 104 Carbon Dioxide Level 24 Anion Gap 16 Blood Urea Nitrogen 17 Creatinine 0.65 Glucose Level 220 Hemoglobin A1c 9.6 H Calcium Level 9.4 Troponin I < 0.012 Bedside Glucose 214 263 H Urine Color YELLOW Urine Clarity CLEAR Urine pH 5.0 Urine Specific [place] 1.024 Urine Ketones NEGATIVE Urine Nitrite NEGATIVE Urine Bilirubin NEGATIVE Urine Urobilinogen 1+ H Urine Leukocyte Esterase NEGATIVE Urine Hemoglobin NEGATIVE Urine Glucose 3+ H Urine Total Protein NEGATIVE Urine Opiates Screen Negative Urine Barbiturates Negative Urine Amphetamines Screen Negative Urine Benzodiazepines Screen Negative Urine Cocaine Screen Negative Urine Cannabinoids Negative Test 02/13/17 22:33 02/14/17 01:40 02/14/17 06:45 02/14/17 06:46 Bedside Glucose 380 H 280 H White Blood Count 7.2 Red Blood Count 4.74 Hemoglobin 14.0 Hematocrit 40.4 L Mean Corpuscular Volume 85.2 Mean Corpuscular Hemoglobin 29.5 Mean Corpuscular Hemoglobin Concent 34.7 Red Cell Distribution Width 13.2 Platelet Count 132 L Mean Platelet Volume 9.6 Neutrophils % 58.8 Lymphocytes % 30.5 Monocytes % 7.8 Eosinophils % 1.9 Basophils % 0.7 Nucleated Red Blood Cells % 0.0 Neutrophils # 4.2 Lymphocytes # 2.2 Monocytes # 0.6 Eosinophils # 0.1 Basophils # 0.1 Nucleated Red Blood Cells # 0.0 Free Thyroxine 1.09 Sodium Level 140 Potassium Level 3.8 Chloride Level 106 Carbon Dioxide Level 25 Anion Gap 13 Blood Urea Nitrogen 18 Creatinine 0.71 Glucose Level 206 Calcium Level 8.9 Magnesium Level 1.9 Total Bilirubin 0.3 Direct Bilirubin 0.00 Indirect Bilirubin 0.3 Aspartate Amino Transf (AST/SGOT) 20 Alanine Aminotransferase (ALT/SGPT) 39 Alkaline Phosphatase 57 Total Protein 6.6 Albumin 4.0 Globulin 2.60 Albumin/Globulin Ratio 1.53 Triglycerides Level 214 H Cholesterol Level 211 H LDL Cholesterol, Calculated 137 HDL Cholesterol 31 Cholesterol/HDL Ratio 6.8 Thyroid Stimulating Hormone (TSH) 1.250 Test 02/14/17 08:42 Bedside Glucose 235 H Medications Medications Current Medications Ondansetron HCl (Zofran Inj) 4 mg Q6H PRN IV NAUSEA AND/OR VOMITING; Start at 15:00 Aspirin (Aspirin) 81 mg DAILY PO Last administered on 02/14/17t 08:55; Admin Dose 81 MG; Start 02/14/17 at 09:00 Nitroglycerin (Nitroglycerin (Sl Tab) 0.4 Mg) 1 tab Q5M PRN SL CHEST PAIN; Start 02/13/17 at 15:00 Acetaminophen (Tylenol Tab) 650 mg Q6H PRN PO PAIN LEVEL 1-3 OR FEVER; Start 02/13/17 at 15:00 Acetaminophen/ Hydrocodone Bitart ([place] (5/325)) 1 tab Q6H PRN PO PAIN LEVEL 4 -6 Last administered on 02/13/17 20:28; Admin Dose 1 TAB; Start 02/13/17 at 15:00 Acetaminophen/ Hydrocodone Bitart ([place] (5/325)) 2 tab Q6H PRN PO PAIN LEVEL 7 -10; Start 02/13/17 at 15:00 Morphine Sulfate (morphine) 2 mg Q4H PRN IV PAIN LEVEL 7-10; Start 02/13/17 at 15:00 Zolpidem Tartrate (Ambien) 5 mg QHS PRN PO INSOMNIA; Start 02/13/17 at 15:00 Docusate Sodium (Colace) 100 mg Q12H PRN PO CONSTIPATION; Start 02/13/17 at 15 :00 Magnesium Hydroxide (Milk Of Mag) 30 ml DAILY PRN PO CONSTIPATION; Start 02/13 at 15:00 Bisacodyl (Dulcolax Supp) 10 mg DAILY PRN [place] CONSTIPATION; Start 02/13/17 at 15:00 Famotidine (Pepcid) 20 mg Q12 PO Last administered on 02/14/17 08:55; Admin Dose 20 MG; Start 02/13/17 at 21:00 Enoxaparin Sodium (Lovenox) 40 mg DAILY SC Last administered on 02/14/17 08: 57; Admin Dose 40 MG; Start 02/14/17 at 09:00 Diagnostic Test (Pha) (Accu-Chek) 1 ea 02 XX Last administered on 02/14/17 01 :42; Admin Dose 1 EA; Start 02/14/17 at 02:00 Miscellaneous Information 1 ea NOTE XX ; Start 02/13/17 at 15:30 Glucose (Glutose) 15 gm Q15M PRN PO DECREASED GLUCOSE; Start 02/13/17 at 15:30 Glucose (Glutose) 22.5 gm Q15M PRN PO DECREASED GLUCOSE; Start 02/13/17 at 15: 30 Dextrose (D50w Syringe) 25 ml Q15M PRN IV DECREASED GLUCOSE; Start 02/13/17 at 15:30 Dextrose (D50w Syringe) 50 ml Q15M PRN IV DECREASED GLUCOSE; Start 02/13/17 at 15:30 Glucagon (Glucagen) 1 mg Q15M PRN IM DECREASED GLUCOSE; Start 02/13/17 at 15: 30 Glucose (Glutose) 15 gm Q15M PRN BUCCAL DECREASED GLUCOSE; Start 02/13/17 at 15:30 Amlodipine Besylate (Norvasc) 10 mg DAILY PO Last administered on 02/14/17 08 :54; Admin Dose 10 MG; Start 02/14/17 at 09:00 Clopidogrel Bisulfate (plaVIX) 75 mg DAILY PO Last administered on 02/14/17 08:55; Admin Dose 75 MG; Start 02/14/17 at 09:00 Diltiazem HCl (Cardizem Cd) 120 mg DAILY PO Last administered on 02/14/17 08: 55; Admin Dose 120 MG; Start 02/14/17 at 09:00 Fenofibrate (Tricor) 145 mg DAILY PO Last administered on 02/14/17 08:56; Admin Dose 145 MG; Start 02/14/17 at 09:00 Lorazepam (Ativan) 1 mg BID PRN PO ANXIETY; Start 02/13/17 at 16:00 Metoprolol Succinate (Toprol Xl) 25 mg DAILY PO Last administered on 08:55; Admin Dose 25 MG; Start 02/14/17 at 09:00 Insulin Glargine (Lantus) 24 unit QHS SC Last administered on 02/13/17 22:41 ; Admin Dose 24 UNIT; Start 02/13/17 at 21:00 Atorvastatin Calcium (Lipitor) 40 mg HS PO Last administered on 02/13/17 20: 28; Admin Dose 40 MG; Start 02/13/17 at 21:00 Nicotine (Nicoderm 21 Mg/ 24hr) 1 patch DAILY TRANSDERM Last administered on 09:02; Admin Dose 1 PATCH; Start 02/13/17 at 16:00 VIV VILLAR MD Feb 14, 2017 09:44
[2017-02-14] MEDS ORDERED: ATOR20TA38 PO (09:48)
--- NOTE | 2017-02-14 09:48 | PDOCDIS ---
Discharge Instructions CONDITION Patient Condition: Good HOME CARE INSTRUCTIONS: Diet Instructions: Low Fat /Cholesterol ACTIVITY: Activity Restrictions: Slowly Increase Activity FOLLOW UP/APPOINTMENTS Follow-up Plan dr anderson next available VIV VILLAR MD Feb 14, 2017 09:48
--- NOTE | 2017-02-14 12:55 | RADRPT ---
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 Physician: SEBLE COLVIN Quality: Adequate Procedures: Transthoracic echocardiogram with complete 2D, M-Mode, and doppler examination. Indications: Cerebrovascular Accident. 2D/M Mode Doppler Measurement Value Normal Ranges Measurement Value Normal Ranges LVIDd 2D 5.2 3.5 - 5.6 cm AV Peak Harjit 2.1 m/sec LVIDs 2D 3.3 2.1 - 4.1 cm AV Peak PG 17.0 mmHg FS 2D 36.2 % AI Peak PG 48.0 mmHg LVPWd 2D 1.1 0.6 - 1.1 cm AI Peak Harjit 3.5 m/sec IVSd 2D 1.1 0.6 - 1.1 cm AI PHT 456.0 msec IVS/LVPW 2D 1.0 LVOT Peak Harjit 1.0 m/sec AoR Diam 2D 2.8 2.0 - 3.7 cm LVOT Peak PG 4.0 mmHg LA/Ao 2D 1 0 - 1 MV E Peak Harjit 1.3 m/sec EDV 2D 142.0 cm3 MV A Peak Harjit 1.0 m/sec ESV 2D 36.9 cm3 MV E/A 1.3 LA Dimen 2D 3.8 2.3 - 4.0 cm MV Decel Time 232 msec MV E/A 1.3 TR Peak Harjit 2.3 m/sec TR Peak PG 21.0 mmHg RVSP 24.0 mmHg Findings Left Ventricle: Normal left ventricular systolic function. Normal left ventricular cavity size. Mild concentric left ventricular hypertrophy. Ejection fraction is visually estimated at 60 %. Abnormal Diastolic Function. Right Ventricle: Normal right ventricular size. Normal right ventricular systolic function. Left Atrium: The left atrium is normal in size. Right Atrium: The right atrium is normal in size. Mitral Valve: Mild mitral leaflet calcification. Mild mitral annular calcification. Trace mitral regurgitation. Aortic Valve: No significant aortic stenosis. Aortic cusps appear mildly calcified. Mild aortic valve regurgitation. Tricuspid Valve: Normal appearance of the tricuspid valve. Estimated peak PA systolic pressure 24 mmHg. There is trace tricuspid regurgitation. Pulmonic Valve: Pulmonic valve not well visualized. There is trace pulmonic regurgitation. Pericardium: Normal pericardium with no significant pericardial effusion. Aorta: Normal aortic root. IVC: Normal size and normal respiratory collapse consistent with normal right atrial pressure. Conclusions 1.Normal left ventricular systolic function. Normal left ventricular cavity size. Mild concentric left ventricular hypertrophy. Ejection fraction is visually estimated at 60 %. Abnormal Diastolic Function. 2.Normal right ventricular size. Normal right ventricular systolic function. 3.Mild mitral leaflet calcification. Mild mitral annular calcification. Trace mitral regurgitation. 4.No significant aortic stenosis. Aortic cusps appear mildly calcified. Mild aortic valve regurgitation. 5.Normal appearance of the tricuspid valve. Estimated peak PA systolic pressure 24 mmHg. There is trace tricuspid regurgitation. 6.Pulmonic valve not well visualized. There is trace pulmonic regurgitation. 7.Normal size and normal respiratory collapse consistent with normal right atrial pressure. Electronically Signed By: Reji Chakraborty 14-Feb-2017 12:54:27 -0700 Patient Name: DONTE ESCOBAR Study Date: 13-Feb-2017 [id number]
--- NOTE | 2017-02-14 12:55 | RADRPT ---
Echocardiogram Report Patient Name: DONTE ESCOBAR Gender: Male Date: 1955 Study Date: 13-Feb-2017 Superintendent Cemetery: [place] Location: [facility] Ref. Physician: SEBLE COLVIN Quality: Adequate Procedures: Transthoracic echocardiogram with complete 2D, M-Mode, and doppler examination. Indications: Cerebrovascular Accident. 2D/M Mode Doppler Measurement Value Normal Ranges Measurement Value Normal Ranges LVIDd 2D 5.2 3.5 - 5.6 cm AV Peak Harjit 2.1 m/sec LVIDs 2D 3.3 2.1 - 4.1 cm AV Peak PG 17.0 mmHg FS 2D 36.2 % AI Peak PG 48.0 mmHg LVPWd 2D 1.1 0.6 - 1.1 cm AI Peak Harjit 3.5 m/sec IVSd 2D 1.1 0.6 - 1.1 cm AI PHT 456.0 msec IVS/LVPW 2D 1.0 LVOT Peak Harjit 1.0 m/sec AoR Diam 2D 2.8 2.0 - 3.7 cm LVOT Peak PG 4.0 mmHg LA/Ao 2D 1 0 - 1 MV E Peak Harjit 1.3 m/sec EDV 2D 142.0 cm3 MV A Peak Harjit 1.0 m/sec ESV 2D 36.9 cm3 MV E/A 1.3 LA Dimen 2D 3.8 2.3 - 4.0 cm MV Decel Time 232 msec MV E/A 1.3 TR Peak Harjit 2.3 m/sec TR Peak PG 21.0 mmHg RVSP 24.0 mmHg Findings Left Ventricle: Normal left ventricular systolic function. Normal left ventricular cavity size. Mild concentric left ventricular hypertrophy. Ejection fraction is visually estimated at 60 %. Abnormal Diastolic Function. Right Ventricle: Normal right ventricular size. Normal right ventricular systolic function. Left Atrium: The left atrium is normal in size. Right Atrium: The right atrium is normal in size. Mitral Valve: Mild mitral leaflet calcification. Mild mitral annular calcification. Trace mitral regurgitation. Aortic Valve: No significant aortic stenosis. Aortic cusps appear mildly calcified. Mild aortic valve regurgitation. Tricuspid Valve: Normal appearance of the tricuspid valve. Estimated peak PA systolic pressure 24 mmHg. There is trace tricuspid regurgitation. Pulmonic Valve: Pulmonic valve not well visualized. There is trace pulmonic regurgitation. Pericardium: Normal pericardium with no significant pericardial effusion. Aorta: Normal aortic root. IVC: Normal size and normal respiratory collapse consistent with normal right atrial pressure. Conclusions 1.Normal left ventricular systolic function. Normal left ventricular cavity size. Mild concentric left ventricular hypertrophy. Ejection fraction is visually estimated at 60 %. Abnormal Diastolic Function. 2.Normal right ventricular size. Normal right ventricular systolic function. 3.Mild mitral leaflet calcification. Mild mitral annular calcification. Trace mitral regurgitation. 4.No significant aortic stenosis. Aortic cusps appear mildly calcified. Mild aortic valve regurgitation. 5.Normal appearance of the tricuspid valve. Estimated peak PA systolic pressure 24 mmHg. There is trace tricuspid regurgitation. 6.Pulmonic valve not well visualized. There is trace pulmonic regurgitation. 7.Normal size and normal respiratory collapse consistent with normal right atrial pressure. Electronically Signed By: Reji Chakraborty 14-Feb-2017 12:54:27 -0700 Patient Name: DONTE ESCOBAR Study Date: 13-Feb-2017 [id number]
--- NOTE | 2017-02-14 12:55 | RADRPT ---
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 Physician: SEBLE COLVIN Quality: Adequate Procedures: Transthoracic echocardiogram with complete 2D, M-Mode, and doppler examination. Indications: Cerebrovascular Accident. 2D/M Mode Doppler Measurement Value Normal Ranges Measurement Value Normal Ranges LVIDd 2D 5.2 3.5 - 5.6 cm AV Peak Harjit 2.1 m/sec LVIDs 2D 3.3 2.1 - 4.1 cm AV Peak PG 17.0 mmHg FS 2D 36.2 % AI Peak PG 48.0 mmHg LVPWd 2D 1.1 0.6 - 1.1 cm AI Peak Harjit 3.5 m/sec IVSd 2D 1.1 0.6 - 1.1 cm AI PHT 456.0 msec IVS/LVPW 2D 1.0 LVOT Peak Harjit 1.0 m/sec AoR Diam 2D 2.8 2.0 - 3.7 cm LVOT Peak PG 4.0 mmHg LA/Ao 2D 1 0 - 1 MV E Peak Harjit 1.3 m/sec EDV 2D 142.0 cm3 MV A Peak Harjit 1.0 m/sec ESV 2D 36.9 cm3 MV E/A 1.3 LA Dimen 2D 3.8 2.3 - 4.0 cm MV Decel Time 232 msec MV E/A 1.3 TR Peak Harjit 2.3 m/sec TR Peak PG 21.0 mmHg RVSP 24.0 mmHg Findings Left Ventricle: Normal left ventricular systolic function. Normal left ventricular cavity size. Mild concentric left ventricular hypertrophy. Ejection fraction is visually estimated at 60 %. Abnormal Diastolic Function. Right Ventricle: Normal right ventricular size. Normal right ventricular systolic function. Left Atrium: The left atrium is normal in size. Right Atrium: The right atrium is normal in size. Mitral Valve: Mild mitral leaflet calcification. Mild mitral annular calcification. Trace mitral regurgitation. Aortic Valve: No significant aortic stenosis. Aortic cusps appear mildly calcified. Mild aortic valve regurgitation. Tricuspid Valve: Normal appearance of the tricuspid valve. Estimated peak PA systolic pressure 24 mmHg. There is trace tricuspid regurgitation. Pulmonic Valve: Pulmonic valve not well visualized. There is trace pulmonic regurgitation. Pericardium: Normal pericardium with no significant pericardial effusion. Aorta: Normal aortic root. IVC: Normal size and normal respiratory collapse consistent with normal right atrial pressure. Conclusions 1.Normal left ventricular systolic function. Normal left ventricular cavity size. Mild concentric left ventricular hypertrophy. Ejection fraction is visually estimated at 60 %. Abnormal Diastolic Function. 2.Normal right ventricular size. Normal right ventricular systolic function. 3.Mild mitral leaflet calcification. Mild mitral annular calcification. Trace mitral regurgitation. 4.No significant aortic stenosis. Aortic cusps appear mildly calcified. Mild aortic valve regurgitation. 5.Normal appearance of the tricuspid valve. Estimated peak PA systolic pressure 24 mmHg. There is trace tricuspid regurgitation. 6.Pulmonic valve not well visualized. There is trace pulmonic regurgitation. 7.Normal size and normal respiratory collapse consistent with normal right atrial pressure. Electronically Signed By: Reji Chakraborty 14-Feb-2017 12:54:27 -0700 Patient Name: DONTE ESCOBAR Study Date: 13-Feb-2017 [id number]
--- NOTE | 2017-02-15 03:31 | DS ---
DATE OF ADMISSION: 02/13/2017 DATE OF DISCHARGE: 02/14/2017 DISCHARGE DIAGNOSES: 1. Left arm weakness, improved. 2. No evidence of new stroke or surgically important cerebrovascular disease. 3. Diabetes. 4. Tobacco abuse. 5. Hypertension. 6. Anxiety disorder. HOSPITAL COURSE: Patient presented to the emergency room at [facility] with left arm weakn ess which he saw his primary care physician and was referred to the hospital to rule out stroke. MR I of the brain did not reveal any new stroke. CT scan of the head and neck did not reveal any surgi [place] relevant vascular disease. Patient was observed in hospital and continued on his secondary pr evention medications from prior stroke. His left arm weakness spontaneously improved in the hospita l and at this time, he is improved and deemed stable for discharge to home. DISCHARGE MEDICATIONS: Patient is asked to continue the following medicines without changes: 1. Plavix 75 mg daily. 2. Norvasc 10 mg daily. 3. Lipitor 40 mg. 4. Diltiazem 120 mg daily. 5. Fenofibrate 145 mg daily. 6. Metoprolol 25 mg daily. 7. Aspirin 81 mg daily. 8. Ativan 1 mg b.i.d. p.r.n. 9. Tresiba 15 to 20 units. 10. Lispro 22 to 24 units on sliding scale. The patient asked to take the following medicines at changed dose: Lipitor 40 mg daily. DISCHARGE DISPOSITION: To home. DISCHARGE ACTIVITY: Increase in physical activity as tolerated. DISCHARGE DIET: Two g sodium diet recommended. DISCHARGE FOLLOWUP: With Dr. Johnson, primary care physician in 1 to 2 weeks' time. SUGGESTIONS TO FOLLOWUP CARE: 1. Patient is complaining of left shoulder myofascial pain. This occurs intermittently. I have re commended Tylenol for him. I have also recommended he consider acupuncture and chiropractor as pote ntial solutions for this pain in an attempt to avoid narcotics. Consideration of pain management if this continues to be problematic in the future. 2. Patient does complain of periodic anal fissures. He is encouraged to take extra fiber for this. He had a prior colonoscopy per his report at [facility] 5 years ago, which did not reveal any poly ps or colon cancer. Dictated By: VIV VILLAR MD RER/NTS Conf#: [id number] [facility]#: [id number] CC: LACY COLVIN MD; PAULINO JOHNSON MD;*[facility]*
--- NOTE | 2017-02-15 03:31 | DS ---
DATE OF ADMISSION: 02/13/2017 DATE OF DISCHARGE: 02/14/2017 DISCHARGE DIAGNOSES: 1. Left arm weakness, improved. 2. No evidence of new stroke or surgically important cerebrovascular disease. 3. Diabetes. 4. Tobacco abuse. 5. Hypertension. 6. Anxiety disorder. HOSPITAL COURSE: Patient presented to the emergency room at [facility] with left arm weakn ess which he saw his primary care physician and was referred to the hospital to rule out stroke. MR I of the brain did not reveal any new stroke. CT scan of the head and neck did not reveal any surgi [place] relevant vascular disease. Patient was observed in hospital and continued on his secondary pr evention medications from prior stroke. His left arm weakness spontaneously improved in the hospita l and at this time, he is improved and deemed stable for discharge to home. DISCHARGE MEDICATIONS: Patient is asked to continue the following medicines without changes: 1. Plavix 75 mg daily. 2. Norvasc 10 mg daily. 3. Lipitor 40 mg. 4. Diltiazem 120 mg daily. 5. Fenofibrate 145 mg daily. 6. Metoprolol 25 mg daily. 7. Aspirin 81 mg daily. 8. Ativan 1 mg b.i.d. p.r.n. 9. Tresiba 15 to 20 units. 10. Lispro 22 to 24 units on sliding scale. The patient asked to take the following medicines at changed dose: Lipitor 40 mg daily. DISCHARGE DISPOSITION: To home. DISCHARGE ACTIVITY: Increase in physical activity as tolerated. DISCHARGE DIET: Two g sodium diet recommended. DISCHARGE FOLLOWUP: With Dr. Johnson, primary care physician in 1 to 2 weeks' time. SUGGESTIONS TO FOLLOWUP CARE: 1. Patient is complaining of left shoulder myofascial pain. This occurs intermittently. I have re commended Tylenol for him. I have also recommended he consider acupuncture and chiropractor as pote ntial solutions for this pain in an attempt to avoid narcotics. Consideration of pain management if this continues to be problematic in the future. 2. Patient does complain of periodic anal fissures. He is encouraged to take extra fiber for this. He had a prior colonoscopy per his report at [facility] 5 years ago, which did not reveal any poly ps or colon cancer. Dictated By: VIV VILLAR MD RER/NTS Conf#: [id number] [facility]#: [id number] CC: LACY COLVIN MD; PAULINO JOHNSON MD;*[facility]*
--- NOTE | 2017-02-15 03:31 | DS ---
DATE OF ADMISSION: 02/13/2017 DATE OF DISCHARGE: 02/14/2017 DISCHARGE DIAGNOSES: 1. Left arm weakness, improved. 2. No evidence of new stroke or surgically important cerebrovascular disease. 3. Diabetes. 4. Tobacco abuse. 5. Hypertension. 6. Anxiety disorder. HOSPITAL COURSE: Patient presented to the emergency room at [facility] with left arm weakn ess which he saw his primary care physician and was referred to the hospital to rule out stroke. MR I of the brain did not reveal any new stroke. CT scan of the head and neck did not reveal any surgi [place] relevant vascular disease. Patient was observed in hospital and continued on his secondary pr evention medications from prior stroke. His left arm weakness spontaneously improved in the hospita l and at this time, he is improved and deemed stable for discharge to home. DISCHARGE MEDICATIONS: Patient is asked to continue the following medicines without changes: 1. Plavix 75 mg daily. 2. Norvasc 10 mg daily. 3. Lipitor 40 mg. 4. Diltiazem 120 mg daily. 5. Fenofibrate 145 mg daily. 6. Metoprolol 25 mg daily. 7. Aspirin 81 mg daily. 8. Ativan 1 mg b.i.d. p.r.n. 9. Tresiba 15 to 20 units. 10. Lispro 22 to 24 units on sliding scale. The patient asked to take the following medicines at changed dose: Lipitor 40 mg daily. DISCHARGE DISPOSITION: To home. DISCHARGE ACTIVITY: Increase in physical activity as tolerated. DISCHARGE DIET: Two g sodium diet recommended. DISCHARGE FOLLOWUP: With Dr. Johnson, primary care physician in 1 to 2 weeks' time. SUGGESTIONS TO FOLLOWUP CARE: 1. Patient is complaining of left shoulder myofascial pain. This occurs intermittently. I have re commended Tylenol for him. I have also recommended he consider acupuncture and chiropractor as pote ntial solutions for this pain in an attempt to avoid narcotics. Consideration of pain management if this continues to be problematic in the future. 2. Patient does complain of periodic anal fissures. He is encouraged to take extra fiber for this. He had a prior colonoscopy per his report at [facility] 5 years ago, which did not reveal any poly ps or colon cancer. Dictated By: VIV VILLAR MD RER/NTS Conf#: [id number] [facility]#: [id number] CC: LACY COLVIN MD; PAULINO JOHNSON MD;*[facility]*
== END 2017-02-14 13:37 | disposition home or self-care (01) ==
LOC: E/R 11:23 → MS4 14:31
PROVIDERS: ADMIT Internal Medicine; ATTEND Internal Medicine
DX: R53.1 Weakness (principal); E11.9 Type 2 diabetes mellitus without complications; I10 Essential (primary) hypertension; F41.9 Anxiety disorder, unspecified; Z72.0 Tobacco use; I25.10 Atherosclerotic heart disease of native coronary artery without angina pectoris; E78.5 Hyperlipidemia, unspecified; Z86.73 Personal history of transient ischemic attack (TIA), and cerebral infarction without residual deficits
CPT/HCPCS: 36415; 70450; 70496; 70498; 70551; 71010; 80048; 80053; 80061; 80307; 81003; 82962; 83036; 83735; 84439; 84443; 84484; 85025; 85610; 85730; 92610; 93005; 93306; 96374; 96375; J1650; J1815; J2270; J2405; Q9967; Z7500; Z7502; Z7610; G0378